=== PATIENT | male | born 2000 ===

== ENCOUNTER 2024-03-16 00:02 | Emergency (ER) | payer SELFPAY ==
[2024-03-16] MEDS: Sodium Chloride 0.9% 1,000 ML IV ONE (00:47)
[2024-03-16] MEDS: Sodium Chloride 0.9% 2.5 ML Syringe FLUSH PRN (00:48)
[2024-03-16] MEDS: Ondansetron 4 MG/2 ML SDV IVPUSH ONE (00:48)
[2024-03-16] MEDS: Ketorolac 30 MG/ML SDV IVPUSH ONE (00:48)
[2024-03-16] MEDS: fentaNYL 50 MCG/ML SDV IVPUSH ONE (00:48)
[2024-03-16] MEDS: Sodium Chloride 0.9% 10 ML Syringe FLUSH PRN (00:48)
[2024-03-16 01:07] LABS: BASOPHILS ABSOLUTE AUTO 0.06 K/uL (0.00-0.20); BASOPHILS PERCENT AUTO 0.4 % (0.0-1.0); EOSINOPHILS ABSOLUTE AUTO 0.22 K/uL (0.00-0.45); EOSINOPHILS PERCENT AUTO 1.6 % (0.0-6.0); HEMATOCRIT 45.2 % (42.0-52.0); HEMOGLOBIN 15.2 g/dL (14.0-18.0); IMMATURE GRAN ABSOLUTE AUTO 0.05 K/uL (0.00-0.05); IMMATURE GRAN PERCENT AUTO 0.4 % (0.0-0.4); LYMPHOCYTES ABSOLUTE AUTO 4.16 K/uL (1.00-4.80); LYMPHOCYTES PERCENT AUTO 30.1 % (24.0-44.0); MEAN CORPUSCULAR HEMOGLOBIN 28.3 pg (28.0-32.0); MEAN CORPUSCULAR HGB CONC 33.6 g/dL (32.0-36.0); MEAN PLATELET VOLUME 9.6 fL (9.4-12.4); MONOCYTES ABSOLUTE AUTO 0.72 K/uL (0.00-0.80); MONOCYTES PERCENT AUTO 5.2 % (0.0-8.0); NEUTROPHILS ABSOLUTE AUTO 8.61 K/uL (1.80-7.70); NEUTROPHILS PERCENT AUTO 62.3 % (41.0-71.0); PLATELET COUNT,PLT 353 K/uL (150-400); RED BLOOD CELL COUNT 5.38 M/uL (4.52-5.90); WHITE BLOOD CELL COUNT,WBC 13.82 K/uL (3.9-11.3)
[2024-03-16 01:31] LABS: A/G RATIO 1.2 (0.9-1.6); ALBUMIN 4.4 g/dL (3.4-5.0); BILIRUBIN TOTAL 0.6 mg/dL (0.2-1.0); CALCIUM 9.5 mg/dL (8.5-10.1); CARBON DIOXIDE,CO2 28.4 mmol/L (21.0-32.0); CREATININE 1.3 mg/dL (0.8-1.3); EST CRCL DRUG DOSING (CG) 88.91 mL/min; POTASSIUM,K 3.7 mmol/L (3.5-5.1); PROTEIN TOTAL,TP 8.2 g/dL (6.4-8.2)
[2024-03-16 01:51] LABS: APPEARANCE,URINE CLEAR; COLOR,URINE YELLOW; GLUCOSE,URINE NEGATIVE (NEGATIVE); KETONES,URINE 15 mg/dL (NEGATIVE); LEUKOCYTE ESTERASE,URINE NEGATIVE (NEGATIVE); NITRITE,URINE NEGATIVE (NEGATIVE); OCCULT BLOOD,URINE LARGE (NEGATIVE); PROTEIN,URINE 30 mg/dL (NEGATIVE); UROBILINOGEN,URINE 0.2 EU/dL (<2.0)
[2024-03-16 01:52] LABS: BILIRUBIN,URINE SMALL (NEGATIVE)
[2024-03-16] MEDS ORDERED: Ondansetron 4 MG Tab.DIS PO ONE (01:56)
[2024-03-16] MEDS ORDERED: traMADol 50 MG Tab PO ONE (01:56)
[2024-03-16] MEDS ORDERED: Ibuprofen 600 MG Tab PO ONE (01:56)
[2024-03-16 01:58] LABS: EPITHELIAL CELLS,URINE RARE (NONE-FEW); MUCUS,URINE RARE (NONE-MOD); WBC,URINE 0-1 (0-5/HPF)
[2024-03-16 01:59] LABS: BACTERIA,URINE RARE (NEGATIVE)
[2024-03-16] MEDS: Tamsulosin 0.4 MG Cap.ER PO ONE (02:04)
== END 2024-03-16 02:08 | disposition home or self-care (01) ==
LOC: MW.ED 00:02
DX: N13.2 Hydronephrosis with renal and ureteral calculous obstruction (principal); Z75.8 Other problems related to medical facilities and other health care; Z79.899 Other long term (current) drug therapy
CPT/HCPCS: 36415; 74176; 80053; 81001; 83690; 85025; 96361; 96374; 96375; 99284; A9270; J1885; J2405; J3010; J3490; J7030